=== PATIENT | male | born 1950 | race Caucasian/White ===

== ENCOUNTER → 2017-11-30 | Day surgery (SDC) | payer MEDICARE ==
[~2017-11-30] MED LIST: ASPIRIN81 M2 PO; BYETTA PEN 11 PENIN2 SUBQ; CLONIDINE HCL0.3 M3 PO; COREG25 MG PO; HYDRALAZINE 2525 MG PO; HYDROCODONE-AP1 EAC6 PO; LANTUS100 UNIT/M SUBQ; LASIX 40 MG TAB40 M2 PO; NIFEDIPINE ER30 M1 PO; PLAVIX 75 MG TA75 M1 PO; PROBIOTIC1 EAC2 PO; TUMS PO; VITAMIN D250000 UNIT PO; VOL-CARE RX TA1 EACH PO; ZOCOR20 MG PO
[2017-11-30 09:54] LABS: HEMATOCRIT 40.7 % (42.0-52.0); HEMOGLOBIN 13.1 gm/dL (14.0-18.0); MCH 30.4 pg (26.0-34.0); MCHC 32.1 g/dL (28.0-37.0); MCV 94.6 fL (80.0-100.0); MPV 7.1 fl. (7.2-11.1); RBC 4.3 mil/uL (4.50-6.00); RDW-CV 18.1 % (10.5-14.5); WBC 7.7 thou/uL (4.0-11.0)
[2017-11-30 10:08] LABS: CALCIUM 9.2 mg/dL (8.5-10.1); CREATININE 3.8 mg/dL (0.6-1.3); POTASSIUM 4.3 mmol/L (3.5-5.1)
[2017-11-30 10:13] LABS: ALBUMIN 3.1 g/dL (3.4-5.0); TOTAL BILIRUBIN 0.5 mg/dL (<0.1-1.0); TOTAL PROTEIN 7.8 g/dL (6.4-8.2)
--- NOTE | 2017-11-30 16:37 | EKG ---
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1950 Requested By: Teja Fontenot Order Number: [id number] Reading MD: Juice Cabrera Measurements Intervals [place] Rate: 108 P: -90 OR: 187 QRS: -82 QRSD: 106 T: 120 QT: 335 QTc: 449 Interpretive Statements Sinus or ectopic atrial tachycardia Left anterior fascicular block Abnormal R-wave progression, late transition Nonspecific T abnormalities, lateral leads Baseline wander in lead(s) II,III,aVF No previous ECG available for comparison Electronically Signed On 11-30-2017 16:37:12 CDT by Juice Cabrera [email or web address] <ELECTRONICALLY SIGNED> By: Juice Cabrera MD, [facility] 11/30/17 1637 0945 0945 Juice Cabrera MD, [facility] /EPI
--- NOTE | 2017-12-20 10:13 | OP ---
[facility] [address] [place] [address] OPERATIVE REPORT Name: GENET LEONARD Room: [facility]#: [id number] Admission: 11/30/17 Attend Phys: Teja Fontenot Discharge: Date of : 46 Report #: [id number] THIS REPORT FOR: //name// CC: Juancarlos Fontenot DATE OF SERVICE: 11/30/2017 PREOPERATIVE DIAGNOSIS: End-stage renal disease. POSTOPERATIVE DIAGNOSIS: End-stage renal disease. OPERATIONS: 1. Laparoscopic placement of tunneled peritoneal catheter. 2. Laparoscopic omentopexy. SURGEON: Teja Fontenot M.D. ANESTHESIA: General. ESTIMATED BLOOD LOSS: Minimal. SPECIMENS: None. DESCRIPTION OF PROCEDURE: After informed consent was obtained, the patient was brought to the operating room and placed supine. SCDs were placed and working, preoperative antibiotics were administered and general anesthesia was induced. The abdomen was prepped and draped in the usual sterile fashion. A 5-mm incision was made in the left upper quadrant. A 5-mm trocar was placed under direct vision. Pneumoperitoneum established. A left-sided 5-mm port was placed. An 8-mm port was placed in the left rectus sheath. A catheter was placed through the 8-mm port. Catheter was then tunneled to the left upper quadrant of the abdomen. It was flushed and drained very well with heparinized saline. Omentopexy was then performed using 2-0 Vicryl, using a suture passer to tack the omentum up to the anterior abdominal wall in the right upper quadrant. This was done in two locations. The ports were then removed under direct vision. The skin was closed with a 4-0 Monocryl. Incisions were sealed with Dermabond. COMPLICATIONS: [place] [address] OPERATIVE REPORT Name: GENET LEONARD Room: [facility]#: [id number] Admission: 11/30/17 Attend Phys: Teja Fontenot Discharge: Date of : 46 Report #: [id number] DISPOSITION: The patient was taken to recovery in satisfactory condition. <ELECTRONICALLY SIGNED> By: Teja Fontenot MD 12/20/17 1013 1405 1430Teja Fontenot MD /nt
== END | disposition home or self-care (01) ==
LOC: M.SUR 08:23
PROVIDERS: Surgery
DX: I12.0 Hypertensive chronic kidney disease with stage 5 chronic kidney disease or end stage renal disease (principal); N18.6 End stage renal disease; E11.22 Type 2 diabetes mellitus with diabetic chronic kidney disease; Z98.890 Other specified postprocedural states; Z79.899 Other long term (current) drug therapy